=== PATIENT | female | born 1995 | race Caucasian/White ===

== ENCOUNTER 2018-11-21 13:43 | Inpatient (IN) | payer BC, MEDICAID ==
[~2018-11-21] VITALS: Ht 162.6 cm; Wt 113.4 kg
[2018-11-21] MEDS ORDERED: PNV1TABL76 PO (14:03)
[2018-11-21] MEDS ORDERED: LACTATED RINGERS 1,000 ML IV SCH (14:43)
[2018-11-21] MEDS ORDERED: DEXT 5%/LR + PITOCIN 20UNITS/L 1,000 ML IV SCH ×2 (14:43→19:30)
[2018-11-21 15:46] LABS: CLARITY URINE TURBID (CLEAR); COLOR URINE DARK YELLOW (YELLOW); KETONES URINE NEGATIVE (NEGATIVE); LEUKOCYTE ESTERASE URINE 2+ (NEGATIVE); NITRITE URINE NEGATIVE (NEGATIVE); OCCULT BLOOD URINE 1+ (NEGATIVE); PH URINE 6.5 (4.5-8.0); PROTEIN URINE 1+ (NEGATIVE); SPECIFIC GRAVITY URINE 1.031 (1.005-1.030)
[2018-11-21 15:51] LABS: BASOPHILS % 0.4 % (0.0-2.0); EOSINOPHILS % 0.7 % (0.0-5.0); HEMATOCRIT. 34.7 % (36.0-48.0); HEMOGLOBIN. 11.7 g/dL (12.0-16.0); LYMPHOCYTES % 21.7 % (20.0-50.0); MEAN CORPUSCULAR VOLUME 80.3 fL (81.0-99.0); MEAN PLATELET VOLUME 9.3 fl (7.4-10.4); MONOCYTES % 8.4 % (2.0-8.0); NEUTROPHILS % 68.8 % (40.0-76.0); PLATELET 290 x1000/uL (130-400); RED BLOOD CELL COUNT 4.31 mill/uL (4.2-5.4)
[2018-11-21 15:56] LABS: *BENZODIAZEPINES SCREEN URINE NEGATIVE (NEGATIVE); *COCAINE SCREEN URINE NEGATIVE (NEGATIVE); METHADONE URINE SCREEN NEGATIVE (NEGATIVE)
[2018-11-21 15:57] LABS: *AMPHETAMINES SCREEN URINE NEGATIVE (NEGATIVE); *BARBITURATES SCREEN URINE NEGATIVE (NEGATIVE); CANNABINOID URINE SCREEN NEGATIVE (NEGATIVE); OPIATES URINE SCREEN NEGATIVE (NEGATIVE); PHENCYCLIDINE URINE SCREEN NEGATIVE (NEGATIVE)
[2018-11-21 15:59] LABS: INR 0.9; PARTIAL THROMBOPLASTIN TIME 26.4 sec (23.4-31.0); PROTHROMBIN TIME 9.6 sec (9.6-11.0)
[2018-11-21 16:31] LABS: HEPATITIS B SURFACE ANTIGEN NEGATIVE
[2018-11-21] MEDS ORDERED: CITRIC ACID/SODIUM CITRATE SOLN 30ML UDC PO NR (17:30)
[2018-11-21] MEDS ORDERED: MORPHINE SULFATE/PF 1MG/ML 10ML AMP ONE (17:33)
[2018-11-21] MEDS ORDERED: OXYTOCIN 10 UNITS/ML 1ML ONE (17:36)
[2018-11-21] MEDS ORDERED: SODIUM CHLORIDE 0.9% 10ML VIAL ONE ×4 (17:39→17:53)
[2018-11-21] MEDS ORDERED: GLYCOPYRROLATE 0.2 MG/ML 2ML VIAL ONE ×2 (17:39→17:41)
[2018-11-21] MEDS ORDERED: EPHEDRINE SULFATE 50MG/ML VIAL ONE (17:39)
[2018-11-21] MEDS ORDERED: CEFAZOLIN SODIUM 1000MG/VIAL ONE (17:42)
[2018-11-21] MEDS ORDERED: PHENYLEPHRINE HCL 10 MG/ML 1ML (IV VIAL) IV ONE (17:45)
[2018-11-21] MEDS ORDERED: ONDANSETRON HCL 4MG/2ML INJ ONE (18:22)
[2018-11-21] MEDS ORDERED: METOCLOPRAMIDE HCL 10MG/2ML VIAL ONE (18:22)
[2018-11-21] MEDS ORDERED: KETOROLAC 60MG/2ML VIAL IM ONE (19:09)
[2018-11-21] MEDS ORDERED: RHO(D) IMMUNE GLOBULIN 300 MCG/SYR IM PRN (19:30)
[2018-11-21] MEDS ORDERED: BISACODYL 10MG SUPP PR PRN (19:30)
[2018-11-21] MEDS ORDERED: IBUPROFEN 400MG TABLET PO PRN (19:30)
[2018-11-21] MEDS ORDERED: HYDROMORPHONE HCL/PF 2MG/ML CPJ IM PRN (19:30)
[2018-11-21] MEDS ORDERED: DIPHENHYDRAMINE 50MG/ML VIAL IV PRN (19:45)
[2018-11-21 22:15] VITALS: BP 128/65
[2018-11-21 22:40] VITALS: BP 122/70
[2018-11-22 00:01] VITALS: BP 118/58
[2018-11-22] MEDS: KETOROLAC 30MG/ML VIAL IV PRN ×2 (01:09→06:35)
[2018-11-22 06:00] VITALS: BP 110/58
[2018-11-22 06:59] LABS: BASOPHILS % 0.4 % (0.0-2.0); EOSINOPHILS % 0.4 % (0.0-5.0); HEMATOCRIT. 31.4 % (36.0-48.0); HEMOGLOBIN. 10.3 g/dL (12.0-16.0); LYMPHOCYTES % 18.2 % (20.0-50.0); MEAN CORPUSCULAR HEMOGLOBIN 26.6 pg (28.0-32.0); MEAN PLATELET VOLUME 9.2 fl (7.4-10.4); MONOCYTES % 6.8 % (2.0-8.0); NEUTROPHILS % 74.2 % (40.0-76.0); PLATELET 244 x1000/uL (130-400); RED BLOOD CELL COUNT 3.88 mill/uL (4.2-5.4); RED CELL DISTRIBUTION WIDTH 14.1 % (11.6-14.6)
[2018-11-22 08:00] VITALS: BP 105/58
[2018-11-22] MEDS: IBUPROFEN 800MG TABLET PO PRN ×2 (14:29→18:07)
[2018-11-22 16:00] VITALS: BP 122/77
[2018-11-22 20:00] VITALS: BP 121/79
[2018-11-23 00:07] VITALS: BP 118/60
[2018-11-23 04:00] VITALS: BP 119/74
[2018-11-23] MEDS: IBUPROFEN 800MG TABLET PO PRN ×5 (05:08→21:45)
[2018-11-23 07:30] VITALS: BP 120/69
[2018-11-23 14:45] VITALS: BP 120/66
[2018-11-23 20:00] VITALS: BP 133/81
[2018-11-23] MEDS ORDERED: LANOLIN OINT 7GM TUBE TOP PRN (21:00)
[2018-11-24 04:00] VITALS: BP 115/65
[2018-11-24] MEDS: IBUPROFEN 800MG TABLET PO PRN ×2 (04:04→09:09)
[2018-11-24 06:25] LABS: CLARITY URINE CLEAR (CLEAR); COLOR URINE YELLOW (YELLOW); KETONES URINE NEGATIVE (NEGATIVE); LEUKOCYTE ESTERASE URINE NEGATIVE (NEGATIVE); NITRITE URINE NEGATIVE (NEGATIVE); OCCULT BLOOD URINE 3+ (NEGATIVE); PH URINE 6.5 (4.5-8.0); PROTEIN URINE NEGATIVE (NEGATIVE); SPECIFIC GRAVITY URINE 1.005 (1.005-1.030); UROBILINOGEN URINE 0.2 E.U./dL (0.2-1.0)
[2018-11-24 08:00] VITALS: BP 117/69
[2018-11-24] MEDS ORDERED: TETANUS, DIPHTHERIA, PERTUSSIS VAC/PF 0.5ML (>7YR OLD) IM ONE (08:00)
== END 2018-11-24 11:15 | disposition home or self-care (01) | DRG 540 ==
LOC: 8 EST LDRP 13:43 → OBSVTOIN 13:43 → 8 EST LDRP 14:00 → 8EST 21:53
PROVIDERS: ADMIT Obstetrics & Gynecology; ATTEND Obstetrics & Gynecology
PROC: 10D00Z1 Extraction of Products of Conception, Low, Open Approach (ICD-10-PCS; principal; 2018-11-21)
DX: O34.211 Maternal care for low transverse scar from previous cesarean delivery (principal); O99.214 Obesity complicating childbirth; O99.03 Anemia complicating the puerperium; Z37.0 Single live birth; Z3A.38 38 weeks gestation of pregnancy; Z83.3 Family history of diabetes mellitus
CPT/HCPCS: 36415; 80305; 81003; 86592; 86703; 86762; 86850; 86900; 86920; 87340; 88307; 90715; J0690; J1170; J1885; J2274; J2370; J2405; J2590; J2765; J3490

== ENCOUNTER 2020-09-03 10:07 | Emergency (ER) | payer MEDICAID, OTHER ==
[~2020-09-03] VITALS: Ht 162.6 cm; Wt 101.0 kg
[2020-09-03 12:20] LABS: CLARITY URINE CLEAR (CLEAR); COLOR URINE YELLOW (YELLOW); KETONES URINE NEGATIVE (NEGATIVE); LEUKOCYTE ESTERASE URINE NEGATIVE (NEGATIVE); NITRITE URINE NEGATIVE (NEGATIVE); OCCULT BLOOD URINE 2+ (NEGATIVE); PROTEIN URINE NEGATIVE (NEGATIVE); SPECIFIC GRAVITY URINE 1.017 (1.005-1.030); UROBILINOGEN URINE 0.2 E.U./dL (0.2-1.0)
[2020-09-03 12:34] LABS: BASOPHILS % 0.5 % (0.0-2.0); EOSINOPHILS % 5.4 % (0.0-5.0); HEMATOCRIT. 40.6 % (36.0-48.0); LYMPHOCYTES % 24.4 % (20.0-50.0); MEAN CORPUSCULAR HEMOGLOBIN 28.8 pg (28.0-32.0); MEAN CORPUSCULAR VOLUME 83.5 fL (81.0-99.0); MONOCYTES % 5.8 % (2.0-8.0); NEUTROPHILS % 63.9 % (40.0-76.0); PLATELET 317 x1000/uL (130-400); RED BLOOD CELL COUNT 4.86 mill/uL (4.2-5.4); RED CELL DISTRIBUTION WIDTH 13.9 % (11.6-14.6)
[2020-09-03 12:42] LABS: CHLORIDE 104 mEq/L (98-107)
[2020-09-03 13:06] LABS: B-HCG QUANTITATIVE 8114 mIU/mL (<3)
[2020-09-03 13:42] VITALS: BP 131/78
== END 2020-09-03 13:42 | disposition home or self-care (01) ==
LOC: ER 10:37
DX: O20.0 Threatened abortion (principal); O26.891 Other specified pregnancy related conditions, first trimester; Z3A.01 Less than 8 weeks gestation of pregnancy; F41.9 Anxiety disorder, unspecified; Z87.440 Personal history of urinary (tract) infections
CPT/HCPCS: 36415; 76801; 80053; 81003; 84702; 85025; 86850; 86900; 99284

== ENCOUNTER 2020-09-04 13:04 | Emergency (ER) | payer OTHER ==
[~2020-09-04] VITALS: Ht 162.6 cm; Wt 102.0 kg
[2020-09-04 13:17] VITALS: BP 142/79
== END 2020-09-04 16:01 | disposition left against medical advice (07) ==
LOC: ER 13:04
DX: R68.89 Other general symptoms and signs (principal); Z53.21 Procedure and treatment not carried out due to patient leaving prior to being seen by health care provider

== ENCOUNTER 2022-06-07 17:37 | Observation (INO) | payer OTHER ==
[~2022-06-07] VITALS: Ht 162.6 cm; Wt 112.0 kg
[2022-06-07] MEDS ORDERED: LACTATED RINGERS 1,000 ML IV SCH (21:00)
[2022-06-07 22:10] LABS: CLARITY URINE CLOUDY (CLEAR); COLOR URINE YELLOW (YELLOW); KETONES URINE 3+ (NEGATIVE); LEUKOCYTE ESTERASE URINE TRACE (NEGATIVE); NITRITE URINE NEGATIVE (NEGATIVE); OCCULT BLOOD URINE 3+ (NEGATIVE); PROTEIN URINE NEGATIVE (NEGATIVE); SPECIFIC GRAVITY URINE 1.015 (1.005-1.030)
[2022-06-08 00:30] LABS: BASOPHILS % 0.2 % (0.0-2.0); EOSINOPHILS % 0.9 % (0.0-5.0); HEMOGLOBIN. 11.3 g/dL (12.0-16.0); LYMPHOCYTES % 20.4 % (20.0-50.0); MEAN CORPUSCULAR HEMOGLOBIN 27.9 pg (28.0-32.0); MEAN CORPUSCULAR VOLUME 83.6 fL (81.0-99.0); MEAN PLATELET VOLUME 8.8 fl (7.4-10.4); MONOCYTES % 5.6 % (2.0-8.0); NEUTROPHILS % 72.9 % (40.0-76.0); PLATELET 285 x1000/uL (130-400); RED BLOOD CELL COUNT 4.07 mill/uL (4.2-5.4); RED CELL DISTRIBUTION WIDTH 13.5 % (11.6-14.6)
[2022-06-08] MEDS ORDERED: PREN-15 PO (03:58)
== END 2022-06-08 04:10 | disposition home or self-care (01) ==
LOC: 8 EST A/PP 17:37
PROVIDERS: ADMIT Obstetrics & Gynecology; ATTEND Obstetrics & Gynecology
DX: O46.93 Antepartum hemorrhage, unspecified, third trimester (principal); Z3A.31 31 weeks gestation of pregnancy
CPT/HCPCS: 36415; 59025; 76805; 76818; 81003; 85025; G0378; 99281; J7120

== ENCOUNTER 2022-07-26 18:25 | Observation (INO) | payer OTHER ==
[~2022-07-26] VITALS: Ht 162.6 cm; Wt 115.7 kg
[~2022-07-26 18:25] MED LIST: PREN-15 PO
[2022-07-26] MEDS ORDERED: LACTATED RINGERS 1,000 ML IV SCH (20:00)
[2022-07-26] MEDS ORDERED: LACTATED RINGERS 1,000 ML IV ONE (20:00)
[2022-07-26 20:46] LABS: CLARITY URINE CLOUDY (CLEAR); COLOR URINE DARK YELLOW (YELLOW); KETONES URINE TRACE (NEGATIVE); LEUKOCYTE ESTERASE URINE TRACE (NEGATIVE); NITRITE URINE NEGATIVE (NEGATIVE); OCCULT BLOOD URINE 1+ (NEGATIVE); PROTEIN URINE 1+ (NEGATIVE); SPECIFIC GRAVITY URINE 1.031 (1.005-1.030)
[2022-07-26] MEDS ORDERED: CEFAZOLIN 2,000 MG in DEXT 5% WATER 100 ML IV SCH (21:45)
== END 2022-07-26 23:00 | disposition home or self-care (01) ==
LOC: 8 EST LDRP 18:25
PROVIDERS: ADMIT Obstetrics & Gynecology; ATTEND Obstetrics & Gynecology
DX: O62.9 Abnormality of forces of labor, unspecified (principal); Z3A.38 38 weeks gestation of pregnancy; Z98.891 History of uterine scar from previous surgery
CPT/HCPCS: 59025; 76805; 76818; 81003; 96361; 96365; G0378; J0690; J7060; 96360; 99281; J7120

== ENCOUNTER 2022-07-30 06:16 | Inpatient (IN) | payer OTHER ==
[~2022-07-30] VITALS: Ht 162.6 cm; Wt 115.7 kg
[2022-07-30] MEDS ORDERED: METOCLOPRAMIDE HCL 10MG/2ML VIAL ONE (07:04)
[2022-07-30] MEDS ORDERED: OXYTOCIN 10 UNITS/ML 1ML ONE (07:04)
[2022-07-30] MEDS ORDERED: DEXAMETHASONE 4MG/ML 1ML VIAL ONE (07:04)
[2022-07-30] MEDS ORDERED: ONDANSETRON HCL 4MG/2ML INJ ONE (07:04)
[2022-07-30] MEDS ORDERED: CEFAZOLIN SODIUM 1000MG/VIAL ONE (07:04)
[2022-07-30] MEDS ORDERED: MORPHINE SULFATE/PF 1MG/ML 10ML AMP ONE (07:13)
[2022-07-30] MEDS ORDERED: METHYLERGONOVINE MALEATE 0.2 MG/ML IM PRN (07:15)
[2022-07-30] MEDS ORDERED: LACTATED RINGERS 1,000 ML IV SCH ×2 (07:15→08:15)
[2022-07-30] MEDS ORDERED: CARBOPROST TROMETHAMINE 250 MCG/ML AMPUL IM PRN (07:15)
[2022-07-30 09:37] LABS: BASOPHILS % 0.4 % (0.0-2.0); EOSINOPHILS % 1.4 % (0.0-5.0); HEMATOCRIT. 34.2 % (36.0-48.0); HEMOGLOBIN. 11.2 g/dL (12.0-16.0); LYMPHOCYTES % 26.7 % (20.0-50.0); MEAN CORPUSCULAR HEMOGLOBIN 27.1 pg (28.0-32.0); MEAN PLATELET VOLUME 9.6 fl (7.4-10.4); MONOCYTES % 7.2 % (2.0-8.0); NEUTROPHILS % 64.3 % (40.0-76.0); PLATELET 261 x1000/uL (130-400); RED BLOOD CELL COUNT 4.13 mill/uL (4.2-5.4); RED CELL DISTRIBUTION WIDTH 14.6 % (11.6-14.6)
[2022-07-30 09:48] LABS: INR 0.9; PARTIAL THROMBOPLASTIN TIME 27.1 sec (23.4-31.0); PROTHROMBIN TIME 9.8 sec (9.6-11.0)
[2022-07-30 09:52] LABS: CLARITY URINE CLOUDY (CLEAR); COLOR URINE YELLOW (YELLOW); KETONES URINE NEGATIVE (NEGATIVE); LEUKOCYTE ESTERASE URINE 2+ (NEGATIVE); NITRITE URINE NEGATIVE (NEGATIVE); OCCULT BLOOD URINE 1+ (NEGATIVE); PH URINE 6.5 (4.5-8.0); PROTEIN URINE TRACE (NEGATIVE); SPECIFIC GRAVITY URINE 1.018 (1.005-1.030)
[2022-07-30] MEDS ORDERED: EPHEDRINE SULFATE 50MG/ML VIAL ONE (10:14)
[2022-07-30] MEDS ORDERED: PHENYLEPHRINE HCL 10 MG/ML 1ML (IV VIAL) IV ONE (10:14)
[2022-07-30 10:42] LABS: *AMPHETAMINES SCREEN URINE NEGATIVE (NEGATIVE); *BARBITURATES SCREEN URINE NEGATIVE (NEGATIVE); *BENZODIAZEPINES SCREEN URINE NEGATIVE (NEGATIVE); *COCAINE SCREEN URINE NEGATIVE (NEGATIVE); CANNABINOID URINE SCREEN NEGATIVE (NEGATIVE); METHADONE URINE SCREEN NEGATIVE (NEGATIVE); OPIATES URINE SCREEN NEGATIVE (NEGATIVE); PHENCYCLIDINE URINE SCREEN NEGATIVE (NEGATIVE)
[2022-07-30] MEDS ORDERED: NALOXONE HCL 0.4 MG/ML 1ML VIAL IV PRN (10:45)
[2022-07-30] MEDS ORDERED: FENTANYL CITRATE/PF 50MCG/ML 2ML VIAL IV PRN (10:45)
[2022-07-30] MEDS ORDERED: HYDROMORPHONE HCL/PF 2MG/ML CPJ IM PRN (11:30)
[2022-07-30] MEDS ORDERED: IBUPROFEN 400MG TABLET PO PRN (11:30)
[2022-07-30] MEDS ORDERED: BISACODYL 10MG SUPP PR PRN (11:30)
[2022-07-30] MEDS ORDERED: DIPHENHYDRAMINE 25MG CAPSULE PO PRN (11:30)
[2022-07-30 14:23] LABS: HEPATITIS B SURFACE ANTIGEN NEGATIVE
[2022-07-30] MEDS: OXYTOCIN 30 UNITS/500ML NS PMX 500 ML IV SCH ×2 (14:45→18:57)
[2022-07-30 15:05] VITALS: BP 105/72
[2022-07-30 15:25] VITALS: BP 113/61
[2022-07-30 15:45] VITALS: BP 112/67
[2022-07-30] MEDS: KETOROLAC 30MG/ML VIAL IV SCH ×2 (16:28→22:53)
[2022-07-30] MEDS ORDERED: TETANUS, DIPHTHERIA, PERTUSSIS VAC/PF 0.5ML (>10YR OLD) IM ONE (17:00)
[2022-07-30 20:00] VITALS: BP 110/60
[2022-07-30 23:15] VITALS: BP 106/60
[2022-07-31 03:00] VITALS: BP 117/73
[2022-07-31 07:08] LABS: BASOPHILS % 0.4 % (0.0-2.0); EOSINOPHILS % 0.5 % (0.0-5.0); HEMATOCRIT. 30.5 % (36.0-48.0); HEMOGLOBIN. 10.1 g/dL (12.0-16.0); LYMPHOCYTES % 25.1 % (20.0-50.0); MEAN CORPUSCULAR HEMOGLOBIN 27.5 pg (28.0-32.0); MEAN CORPUSCULAR VOLUME 82.7 fL (81.0-99.0); MEAN PLATELET VOLUME 9.1 fl (7.4-10.4); MONOCYTES % 7.1 % (2.0-8.0); NEUTROPHILS % 66.9 % (40.0-76.0); PLATELET 222 x1000/uL (130-400); RED BLOOD CELL COUNT 3.68 mill/uL (4.2-5.4); RED CELL DISTRIBUTION WIDTH 14.5 % (11.6-14.6)
[2022-07-31 08:00] VITALS: BP 118/80
[2022-07-31] MEDS: IBUPROFEN 800MG TABLET PO PRN ×2 (09:54→20:48)
[2022-07-31] MEDS: PRENATAL VIT/FE FUMARATE/FA TABLET PO SCH (09:54)
[2022-07-31] MEDS: FERROUS SULFATE 325MG TABLET PO SCH ×3 (09:54→17:11)
[2022-07-31 12:00] VITALS: BP 116/62
[2022-07-31 16:00] VITALS: BP 126/61
[2022-07-31 20:00] VITALS: BP 109/55
[2022-07-31] MEDS ORDERED: LANOLIN OINT 7GM TUBE TOP PRN (20:30)
[2022-08-01] MEDS: IBUPROFEN 800MG TABLET PO PRN ×3 (03:04→19:29)
[2022-08-01 04:00] VITALS: BP 129/80
[2022-08-01 07:57] VITALS: BP 132/82
[2022-08-01] MEDS: FERROUS SULFATE 325MG TABLET PO SCH ×3 (08:31→17:30)
[2022-08-01] MEDS: PRENATAL VIT/FE FUMARATE/FA TABLET PO SCH (08:31)
[2022-08-01 15:35] VITALS: BP 123/72
[2022-08-01 19:30] VITALS: BP 126/67
[2022-08-02] MEDS: IBUPROFEN 800MG TABLET PO PRN ×2 (03:00→10:14)
[2022-08-02 04:00] VITALS: BP 123/73
[2022-08-02 08:00] VITALS: BP 128/84
[2022-08-02 10:14] VITALS: BP 123/73
[2022-08-02] MEDS: FERROUS SULFATE 325MG TABLET PO SCH (10:14)
[2022-08-02] MEDS: PRENATAL VIT/FE FUMARATE/FA TABLET PO SCH (10:14)
== END 2022-08-02 13:30 | disposition home or self-care (01) | DRG 540 ==
LOC: OBSVTOIN 06:16 → 8 EST LDRP 06:16 → 8EST 15:48
PROVIDERS: ADMIT Obstetrics & Gynecology; ATTEND Obstetrics & Gynecology
PROC: 10D00Z1 Extraction of Products of Conception, Low, Open Approach (ICD-10-PCS; principal; 2022-07-30)
DX: O69.81X0 Labor and delivery complicated by cord around neck, without compression, not applicable or unspecified (principal); O99.214 Obesity complicating childbirth; O34.211 Maternal care for low transverse scar from previous cesarean delivery; Z20.822 Contact with and (suspected) exposure to COVID-19; O99.02 Anemia complicating childbirth; Z37.0 Single live birth; Z3A.39 39 weeks gestation of pregnancy; Z83.3 Family history of diabetes mellitus; Z82.49 Family history of ischemic heart disease and other diseases of the circulatory system
CPT/HCPCS: 36415; 80305; 81003; 85025; 86592; 86703; 86762; 86850; 86900; 87340; 87426; 88307; 90715; 99281; J0690; J1100; J1885; J2274; J2370; J2405; J2765; J3490; J7120; A4315; J2590